=== PATIENT | female | born 1960 | race Caucasian/White ===

== ENCOUNTER → 2016-12-30 | Outpatient (CLI) | payer OTHER ==
--- NOTE | 2017-01-01 12:27 | MAM ---
EXAM DESCRIPTION: MAMMO BREAST SCREENING BILATERAL CAD, images were reviewed with CAD technology, R2 computer-aided detection. CLINICAL HISTORY: [facility]. COMPARISON: 2014. FINDINGS: Routine views are obtained. Scattered glandular pattern. Scattered calcifications are shown on the left and appear grossly stable period new mammographic a right breast asymmetry retroareolar 6 o'clock 3-4 cm from the nipple . IMPRESSION: Incomplete study. BIRAD CATEGORY: 0 INCOMPLETE RECOMMENDATIONS: FOLLOW-UP: True lateral view right breast with spot compression films in the true lateral and craniocaudal projections. Directed ultrasound if needed. According to the [employer], yearly mammograms are recommended starting at age 40 and continuing as long as a woman is in good health. Any breast change noted on a breast self-exam should be reported promptly to the patient's healthcare provider. Breast MRI is recommended for women with an approximately 20-25% or greater lifetime risk of breast cancer, including women with a strong family history of breast or ovarian cancer and women who have been treated for Hodgkin's disease. Electronically signed by: Cintia Stover 01/01/2017 12:26
== END ==
LOC: MAMMO 08:00
PROVIDERS: ATTEND Family Medicine
DX: Z12.31 Encounter for screening mammogram for malignant neoplasm of breast (principal)

== ENCOUNTER → 2017-03-09 | Outpatient (CLI) | payer OTHER ==
--- NOTE | 2017-03-10 14:12 | MAM ---
EXAM DESCRIPTION: Diagnostic Mammo,Right CLINICAL HISTORY: 56 yearsFemaleABNORMAL MAMMO COMPARISON: Digital screening bilateral examination 01 January 2017. TECHNIQUE: Digital full field MLO, LM, CC, images of the right breast. Digital spot compression of the central right breast in the ML CC and LM projections. CAD was utilized. FINDINGS: Again noted is a region of focal asymmetry at the 6:00 position of the middle third of the right breast 3-4 cm from the nipple. This remains with spot compression. No skin thickening or nipple retraction. Stable breast parenchymal density pattern. No microcalcifications. No mammographic finding at the 800 clock position of the right breast anterior to posterior. Ultrasound findings: Hypoechoic tissue with central echogenicity, well-circumscribed borders, measuring 6.6 x 5.7 mm long axis which is parallel orientation. Nonvascular. No posterior features. Most likely a lymph node. A mostly hypoechoic mass with well circumscribed and lobulated borders is seen at the 800 clock position, 4 cm from the nipple. Dimensions are 3.5 x 1.5 mm. Parallel orientation with no posterior features. Differential includes lymph node versus fibroadenoma. IMPRESSION: BIRAD CATEGORY: 3 PROBABLY BENIGN. Management: Short interval (6-month) follow-up or continued surveillance. The results and follow-up were discussed in person with the patient. Communication explaining the results and followup will be mailed to the patient and referring care provider. Electronically signed by: Jonel Gutierrez MD 03/10/2017 2:11 PM CDT
--- NOTE | 2017-03-10 14:24 | US ---
EXAM DESCRIPTION: Breast,Right CLINICAL HISTORY: 56 yearsFemaleABNORMAL MAMMOGRAM COMPARISON: Diagnostic digital mammogram of the right breast on this date. Previous digital screening breast examination 01 January 2017. TECHNIQUE: Transcutaneous scanning of the right breast utilizing two-dimensional and Doppler modes. Scanning performed by the whiting machine operator and Dr. Gutierrez. FINDINGS: Hypoechoic tissue with central echogenicity, well-circumscribed borders, measuring 6.6 mm long axis which is parallel orientation, 5.7 mm perpendicular. Nonvascular. No posterior features. Most likely a lymph node. A mostly hypoechoic mass with well circumscribed and lobulated borders is seen at the 800 clock position, 4 cm from the nipple. Dimensions are 3.5 x 1.5 mm. Parallel orientation with no posterior features. Differential includes lymph node versus fibroadenoma. IMPRESSION: BIRAD CATEGORY: 3 PROBABLY BENIGN. Management: Short interval (6-month) follow-up or continued surveillance. Please refer to right breast diagnostic digital mammographic report and examination today. The findings and the follow-up plan were reviewed in person with the patient after the examination. Electronically signed by: Jonel Gutierrez MD 03/10/2017 2:23 PM CDT
== END | disposition home or self-care (01) ==
LOC: MAMMO 11:00
PROVIDERS: ATTEND Family Medicine
DX: R92.1 Mammographic calcification found on diagnostic imaging of breast (principal)